=== PATIENT | male | born 1975 | race Hispanic/Latino ===

== ENCOUNTER 2023-02-11 09:58 | Emergency (ER) | payer OTHER ==
[~2023-02-11] VITALS: Ht 172.7 cm; Wt 104.3 kg
[2023-02-11 10:21] LABS: BASOPHILS # (AUTO) 0.09 K/uL (0.00-0.20); BASOPHILS % (AUTO) 1.1 % (0.0-5.0); EOSINOPHILS # (AUTO) 0.42 K/uL (0.00-0.70); EOSINOPHILS % (AUTO) 5.2 % (0.0-8.0); HEMATOCRIT 50.7 % (42-54); IMMATURE GRANULOCYTE ABSOLUTE 0.02 K/uL (0-1); LYMPHOCYTES # (AUTO) 2.7 K/uL (1.0-4.8); LYMPHOCYTES % (AUTO) 33.6 % (21.0-51.0); MEAN CORPUSCULAR HEMOGLOBIN 28.1 pg (27.0-33.0); MEAN CORPUSCULAR HGB CONC 32.7 g/dL (32.0-36.0); MEAN CORPUSCULAR VOLUME 85.9 fL (79-99); MONOCYTES # (AUTO) 0.5 K/uL (0.1-1.0); MONOCYTES % (AUTO) 6.6 % (3.0-13.0); NEUTROPHILS # (AUTO) 4.3 K/uL (1.8-7.7); NEUTROPHILS % (AUTO) 53.3 % (40.0-77.0); PLATELET COUNT (AUTO) 228 K/uL (130-400); RED CELL DISTRIBUTION WIDTH 14.9 % (11.0-15.5); WHITE BLOOD COUNT (AUTO) 8.1 K/uL (4.8-10.8)
[2023-02-11 10:44] LABS: ADD UA MICROSCOPIC YES; APPEARANCE,URINE CLEAR (CLEAR); BILIRUBIN,URINE NEGATIVE (NEGATIVE); COLOR,URINE YELLOW (YELLOW); GLUCOSE, URINE (UA) NEGATIVE (NEGATIVE); KETONES,URINE NEGATIVE (NEGATIVE); LEUKOCYTE ESTERASE ,URINE NEGATIVE Leu/uL (NEGATIVE); NITRATE,URINE NEGATIVE (NEGATIVE); OCCULT BLOOD,URINE NEGATIVE (NEGATIVE); PH,URINE 5.5 (5.0-8.0); PROTEIN,URINE 10 mg/dL (NEGATIVE); UROBILINOGEN,URINE 0.2 mg/dL (0.2-1.0)
[2023-02-11 10:45] LABS: MUCUS,URINE RARE LPF (None Seen); RBC,URINE 0-1 /HPF (0-1); WBC,URINE 0-1 /HPF (0-1)
[2023-02-11 10:56] LABS: ALBUMIN 3.8 g/dL (3.5-5.0); BILIRUBIN,TOTAL 0.7 mg/dL (0.2-1.0); CREATININE 1.2 mg/dL (0.5-1.5); POTASSIUM 4.1 mmol/L (3.5-5.1); TOTAL PROTEIN, SERUM 7.9 g/dL (6.0-8.3)
[2023-02-11] MEDS ORDERED: KETOROLAC 30MG VIAL (30MG/ML) IVP ONE (11:30)
[2023-02-11] MEDS ORDERED: IBUP-2070 PO (13:55)
[2023-02-11 14:04] VITALS: BP 127/64; PULSE 62; RESP 22; O2SAT 96
== END 2023-02-11 14:07 | disposition home or self-care (01) ==
LOC: EDH 09:58
DX: R07.89 Other chest pain (principal); Z98.890 Other specified postprocedural states
CPT/HCPCS: 99285; 96374; 71045; 84484 ×2; 80053; 85025; 81001; 36415; 93005; J1885

== ENCOUNTER 2025-03-12 21:54 | Emergency (ER) | payer SELFPAY ==
[~2025-03-12] VITALS: Ht 152.4 cm; Wt 104.3 kg
[~2025-03-12 21:54] MED LIST: IBUP-1492 PO
[2025-03-12 21:55] VITALS: BP 138/82; PULSE 85; RESP 18; TEMP 98
[2025-03-12 22:19] LABS: IMMATURE GRANULOCYTE ABSOLUTE 0.02 K/uL (0-1); NUCLEATED RED BLOOD CELLS 0.0 % (0.0-0.19); PLATELET COUNT (AUTO) 214 K/uL (130-400); RED BLOOD CELL COUNT(AUTO) 4.71 MIL/uL (4.50-6.20); RED CELL DISTRIBUTION WIDTH 12.8 % (11.0-15.5); WHITE BLOOD COUNT (AUTO) 9.2 K/uL (4.8-10.8)
[2025-03-12 22:44] LABS: CREATININE 1.2 mg/dL (0.5-1.3); GLOMERULAR FILTR. RATE CALC 74.0 mL/min (>90); GLUCOSE,RANDOM 101.0 mg/dL (70-105); SODIUM SERUM 141.0 mmol/L (136-145); UREA NITROGEN, BLOOD 21.0 mg/dL (7-18)
[2025-03-12 22:49] LABS: ALCOHOL, BLOOD 60.0 mg/dL (0-10); CREATINE KINASE, TOTAL 176.0 U/L (21-232)
[2025-03-12 22:59] LABS: APPEARANCE,URINE CLEAR (CLEAR); GLUCOSE, URINE (UA) NEGATIVE (NEGATIVE); LEUKOCYTE ESTERASE ,URINE 75 Leu/uL (NEGATIVE); NITRATE,URINE NEGATIVE (NEGATIVE); OCCULT BLOOD,URINE NEGATIVE (NEGATIVE)
[2025-03-12 23:06] LABS: ADD UA MICROSCOPIC YES
[2025-03-12 23:07] LABS: AMPHET/METH SCREEN,URINE NEGATIVE (NEGATIVE); BARBITURATE SCREEN, URINE NEGATIVE (NEGATIVE); CANNABINOID SCREEN,URINE NEGATIVE (NEGATIVE); COCAINE SCREEN,URINE NEGATIVE (NEGATIVE)
--- NOTE | 2025-03-13 00:10 | HMCIMG ---
EXAM: CR Chest, 1 View. CLINICAL HISTORY: Chest pain. COMPARISON: None provided. FINDINGS: LUNGS: The lungs show no infiltrate or other acute finding. PLEURAL SPACES: No pleural effusion or pneumothorax. MEDIASTINUM: The cardiomediastinal silhouette is within normal limits. BONES: No aggressive appearing osseous lesion. IMPRESSION: No acute cardiopulmonary pathology is evident. /[place]
--- NOTE | 2025-03-13 00:50 | NUR ---
PT CALLED NO ANSWER, NOT IN LOBBY
--- NOTE | 2025-03-13 01:59 | NUR ---
PT CALLED NO ANSWER
--- NOTE | 2025-03-13 02:07 | NUR ---
PT CALLED, NO ANSWER, NOT IN LOBBY OR MAIN ER PT DID NOT COMMUINCATE WITH STAFF ON DESIRE TO LEAVE
--- NOTE | 2025-03-13 13:11 | EKG ---
[facility] Test Date: 2025-03-12 Test Time: 21:59:48 Pat Name: GARRETT PENA Department: [facility] Room: Gender: M [employer]: [id number] : 1975 Requested By: MARCO VALENTIN Order Number: [id number] Reading MD: Jose Jarrett Measurements Intervals [place] Rate: 80 P: 31 ND: 137 QRS: -33 QRSD: 105 T: 34 QT: 377 QTc: 436 Interpretive Statements Sinus rhythm Left axis deviation Compared to ECG 02/11/2023 10:26:02 No significant changes Electronically Signed On 03-14-2025 09:31:04 [employer] by Jose Jarrett Please click the below link to view image of tracing.
== END 2025-03-13 00:50 | disposition left against medical advice (07) ==
LOC: EDH 21:54
DX: R07.89 Other chest pain (principal)
CPT/HCPCS: 36415; 71045; 80048; 80305; 81001; 82550; 84484; 85025; 87086; 93005; 99285